=== PATIENT | female | born 1995 | race Caucasian/White ===

== ENCOUNTER 2021-10-22 14:46 | Emergency (ER) | payer OTHER ==
[~2021-10-22] VITALS: Ht 152.4 cm; Wt 43.6 kg
[2021-10-22] MEDS ORDERED: HYDROCODONE/ACETAMINOPHEN 5-325 MG TABLET PO ONE (15:45)
[2021-10-22 17:45] VITALS: BP 118/72
== END 2021-10-22 17:48 | disposition home or self-care (01) ==
LOC: EMS 14:46
DX: S09.90XA Unspecified injury of head, initial encounter (principal); W19.XXXA Unspecified fall, initial encounter; Y93.01 Activity, walking, marching and hiking; Y92.89 Other specified places as the place of occurrence of the external cause; Y99.8 Other external cause status
CPT/HCPCS: 70450; 99284

== ENCOUNTER 2024-03-20 00:08 | Emergency (ER) | payer OTHER ==
[~2024-03-20] VITALS: Ht 152.4 cm; Wt 51.0 kg
[2024-03-20 00:12] VITALS: BP 129/62; PULSE 76; RESP 16; TEMP 98.4
[2024-03-20] MEDS: TraMADol HCL 50 MG TABLET PO ONE (01:26)
[2024-03-20] MEDS: SODIUM CHLORIDE 0.9% 1,000 ML IV ONE (01:26)
[2024-03-20 01:36] LABS: BASOPHILS % (AUTO) 0.6 % (0.0-2.0); EOSINOPHILS % (AUTO) 0.9 % (1.0-6.0); HEMATOCRIT 31.3 % (36-46); HEMOGLOBIN 9.2 g/dL (12.0-16.0); LYMPHOCYTES # (AUTO) 3.5 K/uL (1.0-4.8); LYMPHOCYTES % (AUTO) 30.7 % (22.0-44.0); MEAN CORPUSCULAR HEMOGLOBIN 16.3 pg (26.0-34.0); MEAN CORPUSCULAR HGB CONC 29.3 G/dL (31.0-37.0); MEAN CORPUSCULAR VOLUME 56 fL (80-100); MONOCYTES % (AUTO) 8.6 % (2.0-9.0); NEUTROPHILS # (AUTO) 6.7 K/uL (1.8-7.7); NEUTROPHILS % (AUTO) 59.2 % (40.0-70.0); PLATELET COUNT (AUTO) 517 K/uL (150-450); RED BLOOD CELL COUNT(AUTO) 5.63 MIL/uL (4.00-5.20); RED CELL DISTRIBUTION WIDTH 21.7 % (11.5-14.5); WHITE BLOOD COUNT (AUTO) 11.3 K/uL (4.5-11.0)
[2024-03-20 01:44] LABS: ANION GAP 8 mmol/L (8-16); CALCIUM, TOTAL 9.1 mg/dL (8.8-10.5); CARBON DIOXIDE 30 mmol/L (22-29); CHLORIDE 102 mmol/L (98-107); CREATININE 0.59 mg/dL (0.60-1.30); GLOMERULAR FILTR. RATE CALC > 60 mL/min (>60); GLUCOSE,RANDOM 98 mg/dL (70-110); POTASSIUM 3.8 mmol/L (3.5-5.1); SODIUM SERUM 140 mmol/L (136-145); UREA NITROGEN, BLOOD 8 mg/dL (7-18)
[2024-03-20 01:47] LABS: ALCOHOL, BLOOD (SERUM) 83 mg/dL (0-10)
[2024-03-20 02:23] LABS: PATHOLOGY REVIEW, DIFF YES; RBC MORPHOLOGY COMMENT ABNORMAL RBC MORPH
== END 2024-03-20 05:14 | disposition home or self-care (01) ==
LOC: EMS 00:09
DX: S00.11XA Contusion of right eyelid and periocular area, initial encounter (principal); S00.511A Abrasion of lip, initial encounter; F12.90 Cannabis use, unspecified, uncomplicated; Z79.899 Other long term (current) drug therapy; W01.0XXA Fall on same level from slipping, tripping and stumbling without subsequent striking against object, initial encounter; Y93.41 Activity, dancing; Y92.89 Other specified places as the place of occurrence of the external cause; Y99.8 Other external cause status
CPT/HCPCS: 99284; 70450; 96360; 80048; 84703; 85025; 36415; 73130; 72125; G0480; J7030